=== PATIENT | female | born 1960 | race Caucasian/White ===

== ENCOUNTER → 2024-07-20 08:28 | Outpatient (REF) | payer OTHER, SELFPAY | LOC: DHSLP 08:28 | PROVIDERS: ATTENDING PHYSICIAN Internal Medicine Cardiovascular Disease; FAMILY PHYSICIAN Family Medicine | DX: G47.30 Sleep apnea, unspecified (principal); R06.83 Snoring | CPT/HCPCS: 95800 ==

== ENCOUNTER 2024-09-16 05:52 | Day surgery (SDC) | payer OTHER, SELFPAY ==
[2024-08-25 10:38] VITALS: BMI 30.5
--- NOTE | 2024-08-25 10:46 | HPS.HSE ---
Addendum entered and electronically signed by Lynn Moreno PA-C 09/15/24 12:48:
Update: Per the patient, her abdominal MRI has been set up for October 12 at [facility].
Original Note:
Family Physician
-
Family Physician: Annie Ortega
Chief Complaint
-
Paroxysmal atrial fibrillation.
History of Present Illness
The patient is a 64 year old female presenting today for paroxysmal atrial fibrillation. The patient reports symptoms such as significant palpitations, mild shortness of breath, and an overall 'uneasy feeling' likely secondary to this
diagnosis. She is on current pharmacological therapy with Metoprolol Succinate. She reports compliance with Eliquis for oral anticoagulation due to a CHADS-VASc of 3. She notes that her atrial fibrillation symptoms greatly interfere with her
activities of daily living and overall impact her quality of life. She is interested in pursuing pulmonary vein isolation for more definitive arrhythmia management. She denies any current complaints today such as chest pain, shortness of breath at
rest, nausea, vomiting, diarrhea, lightheadedness, dizziness, cough, sore throat, or fever.
Medical History
Past Medical History
Past Medical History: Reports Other
Additional Past Medical History:
1. Paroxysmal atrial fibrillation, status post loop recorder implant 04/2024; pharmacological therapy with Metoprolol Succinate and oral anticoagulation with Eliquis.
2. Hypertension.
3. Dyslipidemia.
4. Left anterior fascicular block.
5. Non-insulin dependent diabetes.
6. GERD.
7. Nephrolithiasis.
8. Right adrenal gland nodule on pre-ablation chest CT, work-up ongoing.
9. Left carpal tunnel syndrome.
10. Bilateral long trigger finger.
11. Hypothyroidism.
12. Iron deficiency anemia, on oral supplementation.
13. Obesity, BMI 30.5.
Past Surgical History: Reports Other
Additional Past Surgical History:
1. Loop recorder implant.
2. Right carpal tunnel release.
3. Left ganglion cyst excision.
4. Left ring finger cyst excision.
5. Tonsillectomy.
6. Multiple colonoscopies.
7. Multiple endoscopies.
Social History
Tobacco: Non-smoker
Alcohol: None
Personal:
Living: Other (She lives in a 2 story home with her . )
Family History
Family History: Not pertinent
Allergies / Home Medications
Allergy/Medication List:
Home medications:
1. Acetaminophen 1300 mg p.o. every 12 hours as needed.
2. Eliquis 5 mg p.o. twice a day.
3. Atorvastatin 10 mg p.o. every evening.
4. Biotin 1000 mcg p.o. 4 times a week.
5. Cetirizine 10 mg p.o. daily as needed.
6. Cholecalciferol 125 mcg p.o. daily.
7. Farxiga 10 mg p.o. daily.
8. Ferrous sulfate 325 mg p.o. daily.
9. Ferrous sulfate 325 mg p.o. daily as needed.
10. Levothyroxine 25 mcg p.o. daily.
11. Loratadine 10 mg p.o. daily as needed.
12. Losartan 100 mg p.o. daily.
13. Metformin 1000 mg p.o. twice a day with meals.
14. Metoprolol Succinate 25 mg p.o. daily.
15. Centrum multivitamin 1 tablet 3 times a week.
16. Potassium gluconate 1 tablet p.o. every other day.
17. Rybelsus 7 mg p.o. daily.
Allergies: Vicodin. Thimerosal. Sunlight. Cat dander.
Review of Systems
-
A 12 point ROS was completed and negative except as noted: Yes
Physical Exam
Vital Signs
Blood pressure 146/79. Heart rate 79. Respirations 18. Pulse ox 97% on room air.
Height 5 feet, 9 inches. Weight 93.7 kg. BMI 30.5.
Physical Exam
General: Well Developed, Well Nourished and No Apparent Distress
HEENT: NormoCephalic, Moist mucous membranes, Atraumatic and PERRLA
Respiratory: Clear
Cardiac: Regular Rhythm
GI: Soft, Non Tender, Non Distended and Other (Obese. )
Musculoskeletal: No Edema and Normal Gait & Station
Skin: Warm and Dry
Neuro: AO x 3 and Nonfocal/grossly intact
Laboratory Results
-
DIAGNOSTIC STUDIES as of 08/25/2024: White blood cell count 10.7. Hemoglobin 14.7. Platelet count 237,000. PT 18.6. INR 1.49. Sodium 141. Potassium 3.8. BUN 23. Creatinine 0.7. Glucose 176. Calcium 10.3. Magnesium 1.9. AST 21. ALT 24. Albumin 4.5.
Type and screen O positive.
EKG 08/25/2024: Normal sinus rhythm. Left anterior fascicular block. Cannot rule out anterior infarct, age undetermined.
Chest CT 08/25/2024: Single, individual left and right superior and inferior pulmonary veins. No left atrial filling defect/thrombus is identified. Indeterminate 1.9 cm right adrenal gland nodule. Statistically most likely to represent an adenoma,
but an adrenal mass protocol MRI could be performed if more definitive characterization is requested. Left nephrolithiasis.
Echocardiogram 03/31/2024: Ejection fraction is 62%. No significant valvular disease.
Impression/Plan
-
IMPRESSION/PLAN:
1. Paroxysmal atrial fibrillation: The patient is in need of pulmonary vein isolation with Dr. Marques Sales on 09/16/2024. The benefits and risks of pulmonary vein isolation have been explained to the patient. The patient understands these risks
and wishes to proceed. She will not be required to undergo a pre-procedural transesophageal echocardiogram as she has been compliant with her home oral anticoagulation. She is aware to continue her Eliquis up until the night prior to her procedure.
She will hold her Farxiga 3 days prior. She will take no medications the morning of her procedure.
2. Right adrenal gland nodule on pre-ablation chest CT, work-up ongoing: This nodule likely represents an adenoma; however an abdominal MRI with and without contrast is recommended for further characterization. We initially attempted to schedule her
MRI here at [facility]; however, she is capitated to having her MRI done at [facility]. This was discussed with the patient and her primary care physician, Dr. Annie Ortega. Dr Ortega, who is affiliated with
[facility], has agreed to order the imaging and follow-up with the results. As of 09/12/2024, the patient is awaiting authorization. The patient was advised that she must continue strict compliance with Eliquis for 30 days pre-procedure and 3 months
post-procedure. Knowing this, she would like to still proceed with her ablation as planned and then undergo an evaluation for this mass.
[2024-08-25 11:31] LABS: % Basophils 0.8 % (0-2); % Eosinophils 15.6 % (0-6); % Immature Granulocytes 0.4 % (0-0.5); % Lymphocytes 18.2 % (20.5-51.1); % Monocytes 6.7 % (1.7-9.3); % Neutrophils 58.3 % (42.2-75.2); Absolute Basophils 0.1 10^3/uL (0-0.2); Absolute Eosinophils 1.7 10^3/uL (0-0.7); Absolute Monocytes 0.7 10^3/uL (0.1-0.6); Absolute Neutrophils 6.2 10^3/uL (1.4-6.5); Hematocrit 44.5 % (37.0-47.0); Hemoglobin 14.7 g/dL (12.0-16.0); Mean Corpuscular Hgb 29.8 pg (27.0-31.0); Mean Corpuscular Volume 90.1 fL (81.0-99.0); Mean Platelet Volume 9.5 fL (7.4-10.4); Nucleated Red Blood Cells % 0 %; Platelet Count 237 10^3/uL (130-400); Red Blood Cell Count 4.94 10^6/uL (4.20-5.40); Red Cell Dist. Width 12.8 % (11.5-14.5); White Blood Cell Count 10.7 10^3/uL (4.8-10.8)
[2024-08-25 12:12] LABS: INR 1.49; PT 18.6 Sec (11.4-14.6)
[2024-08-25 12:28] LABS: ALT (SGPT) 24 U/L (0-35); AST (SGOT) 21 U/L (14-36); Albumin 4.5 g/dl (3.5-5.0); Alkaline Phosphatase 81 U/L (38-126); Blood Urea Nitrogen 23 mg/dl (7-17); Calcium 10.3 mg/dl (8.4-10.2); Carbon Dioxide 29 mmol/L (22-30); Chloride 100 mmol/L (98-107); Estimated Creatinine Clearance 99 ml/min; Glucose 176 mg/dl (70-99); Magnesium 1.9 mg/dl (1.6-2.3); Potassium 3.8 mmol/L (3.5-5.1); Sodium 141 mmol/L (135-145); Total Bilirubin 0.6 mg/dl (0.2-1.3); Total Protein 7.2 g/dl (6.3-8.2); eGFR > 60.00
[2024-09-16] VITALS (11 sets, daily range): BP systolic 110–144; BP diastolic 51–63; BMI 29.6
[2024-09-16 06:58] LABS: Glucose - Point of Care 154 mg/dl (70-99)
--- NOTE | 2024-09-16 07:39 | ITS.CL.ABL ---
Director Game - Ablation
Ablation
Procedure Report:
Primary Grinder And Honer Operator Automatic: Dr Annie Ortega
Procedure Date: 09/16/2024
Patient History:
Patient is a pleasant 64-year-old female with a past medical history significant for hypertension, hyperlipidemia, diabetes mellitus type 2, obesity, and symptomatic paroxysmal atrial fibrillation.
See H&P for complete details.
Indication:
Symptomatic paroxysmal atrial fibrillation
Arrhythmia Specific History:
Prior Medical Therapies for Rate and Rhythm Control:
X Beta-kory
[ ] Calcium channel-kory
[ ] Amiodarone
[ ] Dronederone
[ ] Sotalol
[ ] Flecainide
[ ] Dofetilide
[ ] Options limited by bradycardia
[ ] Options limited by comorbid renal disease
Prior Procedural Therapies for AF/AFL:
[ ] Cardioversion
[ ] Pulmonary Vein Isolation
[ ] Posterior Wall Isolation
[ ] Additional lines (Specify)
[ ] Surgical Tena-MAZE or PVI (Specify)
Procedure Performed:
X AF ablation procedure (17304) -- includes LA/CS pacing, trans-septal, 3D mapping, + ICE
[ ] +IV drug (45653)
[ ] +Other Arrhythmia (99335)
[ ] +Other AF Line/ablation (32104)
Risks and expected recovery has been explained in detail. Alternative options have been explored, and in a shared-decision making fashion we have decided that this was the most appropriate procedure.
Method
NPO status confirmed. Grounding pad applied. Defibrillator pads applied. Continuous surface ECG, pulse oximetry, and blood pressure were monitored. Procedure was performed under general anesthesia, with anesthesia services.
Both groins were clipped, prepped with Chloraprep, and draped in sterile fashion. Time out was called. Local anesthesia administered with bupivacaine. The right femoral vein was accessed for catheter placement, using ultrasound guidance (images
saved to record), micro-puncture needle/wire, and modified seldinger technique. 3 sheaths were placed. The following catheters were used:
[ ] Tacticath SE (D/F Curve) ablation catheter
X Viewflex 9Fr ICE catheter
X Inquiry decapolar 6Fr diagnostic catheter
[ ] CRD Hex 6Fr
[ ] Arctic Front Advance Cryoballoon ([ ]28mm[ ]23mm)
[ ] Achieve Advance mapping catheter ([ ]15mm[ ]20mm)
X FlexCath Contour 10 Fr with PulseSelect PFA Catheter
X Advisor HD Grid Mapping Catheter, SE
[ ] Acuson AcuNav 8 Fr ICE catheter
[ ]Other: [ ]
Intracardiac ultrasound (ICE) was carefully advanced into the right atrium to guide sheath placement over a J-wire, catheter placement, guide trans-septal puncture, identify potential complications, identify anatomic structures and ensure proper
contact between ablation catheter and tissue.
Heparin was given prior to trans-septal puncture. Heparin was given to achieve and maintain a target ACT of 300-400 seconds throughout the procedure.
Trans-septal access was performed under ICE guidance. The trans-septal puncture was performed with a SafeSept wire through a Brockenbrough needle assembly through the steerable sheath. The wire was visualized as it entered the LSPV and system
advanced under ICE guidance and fluoroscopy into the LA. The Brockenbrough needle assembly, SafeSept wire and sheath dilator were removed under negative pressure. LA pressure was measured and recorded.
ICE and 3D mapping was performed to identify relevant cardiac structures. A careful 3D map was created to assess for regions of low-voltage and abnormal electrogram signals using HD grid mapping catheter and PulseSelect catheter. Additional mapping
was performed as outlined below.
Prior to ablation, glycopyrrolate was provided. PulseSelect catheter was advanced over J-wire to the ostium of each vein. Pulmonary vein isolation was performed with ostial and antral lesions in a circumferential manner. Contact was visualized via
EAM, ICE, fluoroscopy, and EGM signals. During ablation of the right superior pulmonary vein, patient had paroxysmal atrial fibrillation with termination during ablation. There was no recurrence of atrial fibrillation following completion of
ablation. Following completion of ablation lesions, a post-ablation voltage/activation map was performed in sinus rhythm. Entrance and exit block were confirmed for each vein.
Catheter and sheath were removed from the left atrium and post-ablation intracardiac echo evaluation was consistent with pre-ablation with no changes and no pericardial effusion and there is no left atrial thrombus or left ventricle thrombus seen.
Electrophysiology study was performed. Hemostasis was obtained with Vascade and with manual pressure. Protamine was used for reversal.
Estimated Blood Loss
5 mL
Complications
None
Fluoroscopy: 3.3 minutes; 11.40 mGy; DAP 1.31
LA Pressure: Pre 7 mmHg, post 7 mmHg
Baseline Intervals:
Rhythm: SR
DE: 180 ms
QRS: 109 ms
QT: 359 ms
QTc: 401 ms
A-A: 800 ms
R-R: 800 ms
Post-Procedure Intervals:
DE: 180 ms
QRS: 95 ms
QT: 381 ms
QTc: 426 ms
A-A: 801 ms
R-R: 801 ms
AVWB: 310 ms
AERP: 600/260 ms
600/350 ms Jump single echo without arrhythmia induction
Recommendations
- Bedrest with straight-leg precautions as ordered
- Anticipate same day discharge if patient meeting clinical metrics
- Resume home medications as indicated
- Ok to resume anticoagulation tonight if patient and groin sites stable
- PPI daily for 30 days
- Plan for follow-up in office as scheduled
Marques Sales DO, FACC, [facility]
Clinical Cardiac Criminal Justice Program Director
cc: Dr Annie Ortega, Dr Saleem Saravia
[2024-09-16 08:48] LABS: Glucose - Point of Care 143 mg/dl (70-99)
[2024-09-16 08:50] LABS: ACT-LR - POC 308 Seconds (116-155)
[2024-09-16 09:08] LABS: ACT-LR - POC 343 Seconds (116-155)
[2024-09-16 09:44] LABS: ACT-LR - POC 141 Seconds (116-155)
[2024-09-16 10:33] LABS: Glucose - Point of Care 153 mg/dl (70-99)
--- NOTE | 2024-09-16 13:22 | W.PN.UPDATE ---
Update Note
Progress Note Update
64 yo WF s/p PVI (same day). She denies cp, sob, sanjuana diet, she had urinary retention requiring st cath but oob ambulating and voiding, EKG SR, R fem site Vascade, c/d/i, soft. She will resume Eliquis tonight and continue metoprolol. Activity
restrictions reviewed. She will f/u Dr. Saravia in 2 mo. She is for d/c home after 2pm if groin stable.
[2024-09-16] MEDS: TYLENOL 650 MG PO (14:11)
== END 2024-09-16 15:00 | disposition home or self-care (01) ==
LOC: CATH 05:52
PROVIDERS: ATTENDING PHYSICIAN Internal Medicine Cardiovascular Disease; FAMILY PHYSICIAN Family Medicine; OTHER PHYSICIAN Internal Medicine Interventional Cardiology
DX: I48.0 Paroxysmal atrial fibrillation (principal); E66.9 Obesity, unspecified; E11.9 Type 2 diabetes mellitus without complications; E78.5 Hyperlipidemia, unspecified; I10 Essential (primary) hypertension; N20.0 Calculus of kidney; I44.4 Left anterior fascicular block; E03.9 Hypothyroidism, unspecified; K21.9 Gastro-esophageal reflux disease without esophagitis; M65.332 Trigger finger, left middle finger; M65.331 Trigger finger, right middle finger; D50.9 Iron deficiency anemia, unspecified; Z68.30 Body mass index [BMI] 30.0-30.9, adult; Z79.84 Long term (current) use of oral hypoglycemic drugs; Z79.01 Long term (current) use of anticoagulants; Z79.890 Hormone replacement therapy; Z79.899 Other long term (current) drug therapy; Z88.5 Allergy status to narcotic agent; Z90.89 Acquired absence of other organs
CPT/HCPCS: C1732; C1760; C1894; C1769; C1733; C1766; 36415; 75572; 80053; 82962; 83735; 85025; 85347; 85610; 86850; 86900; 86901; 93005; 93656; Q9967